=== PATIENT | male | born 1935 | race Caucasian/White ===

== ENCOUNTER 2021-06-24 06:44 | Inpatient (IN) | payer OTHER ==
[2021-06-24] MEDS ORDERED: SODIUM CHLORIDE 0.9% 500 ML INFUS.BAG IV ONE ×2 (07:47→08:00)
[2021-06-24 08:31] LABS: INR 1.44 (0.83-1.09); PROTHROMBIN TIME (PATIENT) 16.2 SEC (9.7-13.0)
[2021-06-24 08:34] LABS: ACTIVATED PTT 25.6 SECONDS (25.2-36.5)
[2021-06-24 08:41] LABS: CHLORIDE 98 mmol/L (98-107); SODIUM 134 mmol/L (136-145)
[2021-06-24 08:43] LABS: CALCIUM 8.8 mg/dL (8.5-10.1); GLUCOSE,RANDOM 362 mg/dL (74-106)
[2021-06-24 08:44] LABS: ALBUMIN 2.4 g/dl (3.4-5.0); ANION GAP 9 MMOL/L (8-16); BLOOD UREA NITROGEN 20.4 mg/dL (7-18); CO2 27 mmol/L (21-32)
[2021-06-24 08:47] LABS: CREATININE 1.2 mg/dL (0.55-1.3); SGOT/AST 13 U/L (15-37); SGPT/ALT 17 U/L (13-61)
[2021-06-24 08:48] LABS: BILIRUBIN,TOTAL 0.5 mg/dL (0.2-1); TOT PROT 5.5 g/dl (6.4-8.2)
[2021-06-24 08:49] LABS: ALK PHOS 112 U/L (45-117)
[2021-06-24 09:15] LABS: HEMATOCRIT 28.6 % (35.4-49); HEMOGLOBIN 8.3 GM/dL (11.7-16.9); MCH 28.6 pg (25.7-33.7); MCHC 29.1 g/dl (32.0-35.9); MEAN CELL VOLUME 98.5 fl (80-96); MEAN PLT VOLUME 8.5 fl (7.5-11.1); PLATELET COUNT 139 10^3/uL (134-434); RDW 22.2 % (11.9-15.9)
[2021-06-24 09:16] LABS: WHITE BLOOD COUNT 406.2 K/mm3 (4.0-10.0)
[2021-06-24] MEDS ORDERED: DEXAMETHASONE SOD PHOSPHATE 10 MG/1 ML VIAL IVPUSH ONE (09:35)
[2021-06-24] MEDS ORDERED: DEXAMETHASONE SOD PHOSPHATE 10 MG/1 ML VIAL ONE (09:41)
[2021-06-24 09:43] LABS: ANISOCYTOSIS 0; MACROCYTOSIS 0; PLATELET ESTIMATE DECREASED
[2021-06-24 09:50] LABS: VENOUS BASE EXCESS -0.9 mmol/L (-2-2); VENOUS PCO2 43.9 mmHg (38-52); VENOUS PH 7.365 (7.310-7.410)
[2021-06-24] MEDS ORDERED: INSULIN (NOVOLOG) ASPART 100 UNITS/ML 10ML VIAL SQ ONE (09:54)
[2021-06-24 10:51] LABS: LACTIC ACID 2.3 mmol/L (0.4-2.0)
[2021-06-24] MEDS ORDERED: PIPERACILLIN/TAZOB 3.375 GM 3.375 GM in DEXTROSE 5%-WATER - 50 ML IVPB ONE (11:51)
[2021-06-24] MEDS ORDERED: VANCOMYCIN 1 GM in D5W (PRE-DOCKED) 1,000 MG/250 ML IVPB ONE (11:51)
[2021-06-24] MEDS ORDERED: VANCOMYCIN 1 GRAM (PRE-DOCKED) 1,000 MG/250 ML BAG IVPB ONE (11:57)
[2021-06-24] MEDS ORDERED: PIPERACILLIN/TAZOB 3.375 GM 3.375 GM/50 ML BAG IVPB ONE (11:58)
[2021-06-24] MEDS ORDERED: ACETAMINOPHEN 325 MG TABLET (FP) PO PRN (12:22)
[2021-06-24] MEDS ORDERED: INSULIN (LEVEMIR) 100 UNITS/ML UNITS SQ ONE (12:45)
[2021-06-24] MEDS ORDERED: FAMOTIDINE 20 MG TABLET ONE (12:47)
[2021-06-24] MEDS: FAMOTIDINE 20 MG TABLET PO SCH (12:55)
[2021-06-24] MEDS: INSULIN SLIDING SCALE (NOVOLOG) 1 VIAL SQ SCH ×2 (16:50→22:06)
[2021-06-24] MEDS ORDERED: DOXYCYCLINE HYCLATE 100 MG CAPSULE PO ONE (16:59)
[2021-06-24] MEDS: DOXYCYCLINE HYCLATE 100 MG CAPSULE PO SCH (17:06)
[2021-06-24] MEDS ORDERED: HEPARIN NA (PORCINE) 5,000 UNITS/ML 1ML VIAL ONE (21:36)
[2021-06-24] MEDS: HEPARIN NA (PORCINE) 5,000 UNITS/ML 1ML VIAL SQ SCH (22:06)
[2021-06-25] MEDS: guaiFENesin/D-METHORPHAN HB 10 ML UNIT-DOSE CUPS PO PRN ×4 (04:55→21:49)
[2021-06-25 05:02] VITALS: BMI 26.2
[2021-06-25] MEDS: INSULIN SLIDING SCALE (NOVOLOG) 1 VIAL SQ SCH ×4 (06:14→21:55)
[2021-06-25 09:01] LABS: HEMATOCRIT 28.5 % (35.4-49); HEMOGLOBIN 7.6 GM/dL (11.7-16.9); MCHC 26.7 g/dl (32.0-35.9); MEAN CELL VOLUME 97.3 fl (80-96); MEAN PLT VOLUME 8.4 fl (7.5-11.1); PLATELET COUNT 151 10^3/uL (134-434); RBC 2.93 M/mm3 (4.00-5.60); RDW 21.5 % (11.9-15.9)
[2021-06-25 09:09] LABS: BLOOD UREA NITROGEN 26.6 mg/dL (7-18)
[2021-06-25 09:10] LABS: ALBUMIN 2.2 g/dl (3.4-5.0); BILIRUBIN,TOTAL 0.7 mg/dL (0.2-1)
[2021-06-25 09:11] LABS: CALCIUM 8.8 mg/dL (8.5-10.1); CREATININE 1.2 mg/dL (0.55-1.3); TOT PROT 5.4 g/dl (6.4-8.2)
[2021-06-25 10:14] LABS: WHITE BLOOD COUNT 465.8 K/mm3 (4.0-10.0)
[2021-06-25] MEDS: DEXAMETHASONE 4 MG TABLET (FP) PO SCH (10:39)
[2021-06-25] MEDS: HEPARIN NA (PORCINE) 5,000 UNITS/ML 1ML VIAL SQ SCH ×2 (10:39→21:49)
[2021-06-25] MEDS: FAMOTIDINE 20 MG TABLET PO SCH (10:40)
[2021-06-25] MEDS: DOXYCYCLINE HYCLATE 100 MG CAPSULE PO SCH ×2 (10:40→17:20)
[2021-06-25] MEDS ORDERED: PIPERACILLIN/TAZOB 3.375 GM 3.375 GM in DEXTROSE 5%-WATER - 50 ML IVPB SCH (12:00)
[2021-06-25 12:01] LABS: ANISOCYTOSIS 1+; MACROCYTOSIS 0; PLATELET ESTIMATE DECREASED
[2021-06-25] MEDS ORDERED: DEXTROSE 5%-WATER - 50 ML IVPB ONE ×2 (13:08→16:57)
[2021-06-25] MEDS ORDERED: PIPERACILLIN/TAZOBACTAM 3.375 GM VIAL IVPB ONE ×2 (13:08→16:57)
[2021-06-25] MEDS: ASPIRIN 81 MG CHEWABLE TABLETS PO SCH (13:56)
[2021-06-25] MEDS ORDERED: PT OWN MED DRAWER 7, Y5N ONE ×2 (15:30→15:38)
[2021-06-25] MEDS: ENALAPRIL MALEATE 5 MG TABLET PO SCH (15:44)
[2021-06-25] MEDS ORDERED: REMDESIVIR 200 MG in SODIUM CHLORIDE 250 ML IVPB ONE (16:00)
[2021-06-25] MEDS: PIPERACILLIN/TAZOB 3.375 GM 3.375 GM in DEXTROSE 5%-WATER - 50 ML IVPB SCH (17:20)
[2021-06-25] MEDS: ATORVASTATIN CA 10 MG TABLET (FP) PO SCH (21:49)
[2021-06-25] MEDS: INSULIN (LEVEMIR) 100 UNITS/ML UNITS SQ SCH (21:50)
[2021-06-25] MEDS ORDERED: INSULIN (LEVEMIR) 100 UNITS/ML UNITS SQ SCH (22:00)
[2021-06-26] MEDS: PIPERACILLIN/TAZOB 3.375 GM 3.375 GM in DEXTROSE 5%-WATER - 50 ML IVPB SCH ×3 (03:00→17:12)
[2021-06-26] MEDS ORDERED: PIPERACILLIN/TAZOBACTAM 3.375 GM VIAL IVPB ONE ×3 (03:09→17:02)
[2021-06-26] MEDS ORDERED: DEXTROSE 5%-WATER - 50 ML IVPB ONE ×3 (03:09→17:02)
[2021-06-26] MEDS ORDERED: SODIUM CHLORIDE 500 ML IV STA (05:39)
[2021-06-26] MEDS: INSULIN SLIDING SCALE (NOVOLOG) 1 VIAL SQ SCH ×4 (06:14→20:59)
[2021-06-26] MEDS ORDERED: PT OWN MED DRAWER 7, Y5N ONE (09:33)
[2021-06-26] MEDS: ASPIRIN 81 MG CHEWABLE TABLETS PO SCH (09:42)
[2021-06-26] MEDS: DEXAMETHASONE 4 MG TABLET (FP) PO SCH (09:42)
[2021-06-26] MEDS: FAMOTIDINE 20 MG TABLET PO SCH (09:43)
[2021-06-26] MEDS: SODIUM CHLORIDE 1,000 ML IV SCH ×2 (09:43→19:28)
[2021-06-26] MEDS: DOXYCYCLINE HYCLATE 100 MG CAPSULE PO SCH ×2 (09:43→17:12)
[2021-06-26] MEDS: HEPARIN NA (PORCINE) 5,000 UNITS/ML 1ML VIAL SQ SCH ×2 (09:43→21:01)
[2021-06-26] MEDS: ENALAPRIL MALEATE 5 MG TABLET PO SCH (09:43)
[2021-06-26 09:51] LABS: MCHC 28.5 g/dl (32.0-35.9); MEAN CELL VOLUME 98.5 fl (80-96); MEAN PLT VOLUME 8.4 fl (7.5-11.1); PLATELET COUNT 177 10^3/uL (134-434); RBC 2.85 M/mm3 (4.00-5.60); RDW 22.1 % (11.9-15.9)
[2021-06-26 09:53] LABS: WHITE BLOOD COUNT 471.4 K/mm3 (4.0-10.0)
[2021-06-26 09:55] LABS: ALBUMIN 1.9 g/dl (3.4-5.0); CALCIUM 8.6 mg/dL (8.5-10.1)
[2021-06-26 09:58] LABS: CREATININE 1.1 mg/dL (0.55-1.3)
[2021-06-26 10:00] LABS: BILIRUBIN,TOTAL 0.6 mg/dL (0.2-1); TOT PROT 5.1 g/dl (6.4-8.2)
[2021-06-26] MEDS ORDERED: REMDESIVIR 100 MG in SODIUM CHLORIDE 250 ML IVPB SCH (10:00)
[2021-06-26 10:48] LABS: ERYTHROCYTE SEDIMENTATION RATE 102 mm/hr (0-20)
[2021-06-26 11:08] LABS: ANISOCYTOSIS 0; MACROCYTOSIS 0; PLATELET ESTIMATE DECREASED
[2021-06-26] MEDS ORDERED: PIPERACILLIN/TAZOB 3.375 GM 3.375 GM in DEXTROSE 5%-WATER - 50 ML IVPB SCH (18:00)
[2021-06-26] MEDS ORDERED: ALBUTEROL SO4 HFA INHALER IH PRN (19:07)
[2021-06-26] MEDS: guaiFENesin/D-METHORPHAN HB 10 ML UNIT-DOSE CUPS PO PRN (20:58)
[2021-06-26] MEDS: ATORVASTATIN CA 10 MG TABLET (FP) PO SCH (20:59)
[2021-06-26] MEDS: BUDESONIDE/FORMETEROL FUMARATE 80/4.5 mcg INHALER IH SCH (21:00)
[2021-06-26] MEDS: INSULIN (LEVEMIR) 100 UNITS/ML UNITS SQ SCH (21:00)
[2021-06-27] MEDS ORDERED: PIPERACILLIN/TAZOBACTAM 3.375 GM VIAL IVPB ONE ×3 (01:16→17:34)
[2021-06-27] MEDS ORDERED: DEXTROSE 5%-WATER - 50 ML IVPB ONE ×3 (01:17→17:34)
[2021-06-27] MEDS: PIPERACILLIN/TAZOB 3.375 GM 3.375 GM in DEXTROSE 5%-WATER - 50 ML IVPB SCH ×3 (01:22→17:37)
[2021-06-27] MEDS: SODIUM CHLORIDE 1,000 ML IV SCH ×2 (04:46→06:03)
[2021-06-27] MEDS: guaiFENesin/D-METHORPHAN HB 10 ML UNIT-DOSE CUPS PO PRN ×3 (04:46→21:20)
[2021-06-27] MEDS: INSULIN SLIDING SCALE (NOVOLOG) 1 VIAL SQ SCH ×4 (06:03→21:22)
[2021-06-27 09:22] LABS: ALBUMIN 1.9 g/dl (3.4-5.0); BLOOD UREA NITROGEN 22.4 mg/dL (7-18); CALCIUM 8.3 mg/dL (8.5-10.1); MAGNESIUM 2.4 mg/dL (1.8-2.4)
[2021-06-27] MEDS: ASPIRIN 81 MG CHEWABLE TABLETS PO SCH (09:22)
[2021-06-27] MEDS: DEXAMETHASONE 4 MG TABLET (FP) PO SCH (09:22)
[2021-06-27] MEDS: HEPARIN NA (PORCINE) 5,000 UNITS/ML 1ML VIAL SQ SCH ×2 (09:22→21:22)
[2021-06-27] MEDS: FAMOTIDINE 20 MG TABLET PO SCH (09:22)
[2021-06-27] MEDS: DOXYCYCLINE HYCLATE 100 MG CAPSULE PO SCH ×2 (09:22→17:37)
[2021-06-27] MEDS: BUDESONIDE/FORMETEROL FUMARATE 80/4.5 mcg INHALER IH SCH ×2 (09:23→21:26)
[2021-06-27 09:27] LABS: BILIRUBIN,TOTAL 0.9 mg/dL (0.2-1); TOT PROT 5.1 g/dl (6.4-8.2)
[2021-06-27] MEDS ORDERED: PT OWN MED DRAWER 7, Y5N ONE (09:29)
[2021-06-27] MEDS: ENALAPRIL MALEATE 5 MG TABLET PO SCH (09:31)
[2021-06-27 10:12] LABS: HEMATOCRIT 29.1 % (35.4-49); MCH 27.9 pg (25.7-33.7); MCHC 27.5 g/dl (32.0-35.9); MEAN CELL VOLUME 101.3 fl (80-96); MEAN PLT VOLUME 8.6 fl (7.5-11.1); PLATELET COUNT 199 10^3/uL (134-434); RBC 2.87 M/mm3 (4.00-5.60); RDW 22.6 % (11.9-15.9)
[2021-06-27 10:15] LABS: WHITE BLOOD COUNT 388.9 K/mm3 (4.0-10.0)
[2021-06-27] MEDS ORDERED: guaiFENesin 200 MG/10 ML 10 ML UNIT-DOSE CUPS PO PRN (10:56)
[2021-06-27] MEDS ORDERED: SODIUM CHLORIDE 1,000 ML IV SCH (11:00)
[2021-06-27 11:32] LABS: URIC ACID 2.8 mg/dL (2.6-7.2)
[2021-06-27] MEDS: ATORVASTATIN CA 10 MG TABLET (FP) PO SCH (21:21)
[2021-06-27] MEDS: INSULIN (LEVEMIR) 100 UNITS/ML UNITS SQ SCH (21:21)
[2021-06-28] MEDS ORDERED: PIPERACILLIN/TAZOBACTAM 3.375 GM VIAL IVPB ONE ×3 (01:19→16:25)
[2021-06-28] MEDS ORDERED: DEXTROSE 5%-WATER - 50 ML IVPB ONE ×3 (01:20→16:25)
[2021-06-28] MEDS: PIPERACILLIN/TAZOB 3.375 GM 3.375 GM in DEXTROSE 5%-WATER - 50 ML IVPB SCH ×3 (01:51→18:04)
[2021-06-28] MEDS: SODIUM CHLORIDE 1,000 ML IV SCH ×2 (01:53→06:13)
[2021-06-28] MEDS: INSULIN SLIDING SCALE (NOVOLOG) 1 VIAL SQ SCH ×4 (06:13→21:55)
[2021-06-28] MEDS ORDERED: PT OWN MED DRAWER 7, Y5N ONE ×2 (09:19→09:50)
[2021-06-28] MEDS: FAMOTIDINE 20 MG TABLET PO SCH (09:42)
[2021-06-28] MEDS: DOXYCYCLINE HYCLATE 100 MG CAPSULE PO SCH ×2 (09:43→18:03)
[2021-06-28] MEDS: ALLOPURINOL 300 MG TABLET (FP) PO SCH (09:43)
[2021-06-28] MEDS: HEPARIN NA (PORCINE) 5,000 UNITS/ML 1ML VIAL SQ SCH ×2 (09:44→21:55)
[2021-06-28] MEDS: DEXAMETHASONE 4 MG TABLET (FP) PO SCH (09:44)
[2021-06-28] MEDS: ASPIRIN 81 MG CHEWABLE TABLETS PO SCH (09:44)
[2021-06-28 09:46] LABS: HEMATOCRIT 23.9 % (35.4-49); MCH 25.4 pg (25.7-33.7); MCHC 25.3 g/dl (32.0-35.9); MEAN CELL VOLUME 100.7 fl (80-96); MEAN PLT VOLUME 8.2 fl (7.5-11.1); PLATELET COUNT 176 10^3/uL (134-434); RBC 2.37 M/mm3 (4.00-5.60); RDW 22.2 % (11.9-15.9)
[2021-06-28] MEDS: ENALAPRIL MALEATE 5 MG TABLET PO SCH (09:52)
[2021-06-28] MEDS: guaiFENesin/D-METHORPHAN HB 10 ML UNIT-DOSE CUPS PO PRN (09:52)
[2021-06-28] MEDS ORDERED: ALLOPURINOL 300 MG TABLET (FP) PO SCH (10:00)
[2021-06-28] MEDS: BUDESONIDE/FORMETEROL FUMARATE 80/4.5 mcg INHALER IH SCH ×2 (10:00→21:57)
[2021-06-28 10:12] LABS: CALCIUM 8.1 mg/dL (8.5-10.1)
[2021-06-28 10:13] LABS: ALBUMIN 1.7 g/dl (3.4-5.0); BLOOD UREA NITROGEN 21.1 mg/dL (7-18)
[2021-06-28 10:17] LABS: BILIRUBIN,TOTAL 0.6 mg/dL (0.2-1); TOT PROT 4.8 g/dl (6.4-8.2)
[2021-06-28 11:14] LABS: URIC ACID 2.5 mg/dL (2.6-7.2)
[2021-06-28] MEDS: ATORVASTATIN CA 10 MG TABLET (FP) PO SCH (21:55)
[2021-06-28] MEDS: INSULIN (LEVEMIR) 100 UNITS/ML UNITS SQ SCH (21:56)
[2021-06-28] MEDS ORDERED: SENNOSIDES 8.6MG TABLET (FP) PO PRN (22:49)
[2021-06-28] MEDS ORDERED: DOCUSATE SODIUM 100 MG CAPSULE (FP) PO PRN (22:49)
[2021-06-29 01:34] LABS: HEMOGLOBIN 7.5 GM/dL (11.7-16.9); RBC 2.75 M/mm3 (4.00-5.60)
[2021-06-29 01:35] LABS: HEMATOCRIT 26.9 % (35.4-49); MCH 27.3 pg (25.7-33.7); MCHC 27.9 g/dl (32.0-35.9); MEAN CELL VOLUME 97.7 fl (80-96); MEAN PLT VOLUME 8.2 fl (7.5-11.1); PLATELET COUNT 168 10^3/uL (134-434); RDW 21.2 % (11.9-15.9)
[2021-06-29] MEDS ORDERED: PIPERACILLIN/TAZOBACTAM 3.375 GM VIAL IVPB ONE ×3 (02:32→17:44)
[2021-06-29] MEDS ORDERED: DEXTROSE 5%-WATER - 50 ML IVPB ONE ×3 (02:32→17:44)
[2021-06-29] MEDS: SODIUM CHLORIDE 1,000 ML IV SCH ×2 (02:37→06:10)
[2021-06-29] MEDS: PIPERACILLIN/TAZOB 3.375 GM 3.375 GM in DEXTROSE 5%-WATER - 50 ML IVPB SCH ×3 (02:38→18:06)
[2021-06-29] MEDS: INSULIN SLIDING SCALE (NOVOLOG) 1 VIAL SQ SCH ×4 (06:10→22:10)
[2021-06-29] MEDS ORDERED: FUROSEMIDE 40 MG/4 ML INJECTABLE VIAL IVPUSH ONE (07:06)
[2021-06-29 07:47] LABS: ARTERIAL BLD GAS O2 SATURATION 75.3 % (95-98); ARTERIAL BLOOD GAS BASE EXCESS -1.8 mmol/L (-2-2); ARTERIAL BLOOD GAS PO2 41.5 mmHg (80-100); ARTERIAL BLOOD GAS pH 7.365 (7.350-7.450)
[2021-06-29 07:50] LABS: ALLENS TEST POSITIVE
[2021-06-29 09:20] LABS: HEMATOCRIT 31.1 % (35.4-49); HEMOGLOBIN 8.6 GM/dL (11.7-16.9); MCHC 27.6 g/dl (32.0-35.9); MEAN CELL VOLUME 97.8 fl (80-96); MEAN PLT VOLUME 8.2 fl (7.5-11.1); PLATELET COUNT 218 10^3/uL (134-434); RBC 3.18 M/mm3 (4.00-5.60); RDW 21.2 % (11.9-15.9)
[2021-06-29 09:34] LABS: BLOOD UREA NITROGEN 25.1 mg/dL (7-18); CALCIUM 8.4 mg/dL (8.5-10.1)
[2021-06-29 09:37] LABS: URIC ACID 2.4 mg/dL (2.6-7.2)
[2021-06-29 09:39] LABS: BILIRUBIN,TOTAL 1.3 mg/dL (0.2-1); CREATININE 1.1 mg/dL (0.55-1.3)
[2021-06-29 09:40] LABS: TOT PROT 5.3 g/dl (6.4-8.2); WHITE BLOOD COUNT 417.6 K/mm3 (4.0-10.0)
[2021-06-29 09:43] LABS: N-TERMINAL BNP 1710.8 pg/ml (5-450)
[2021-06-29 10:30] LABS: ERYTHROCYTE SEDIMENTATION RATE 97 mm/hr (0-20)
[2021-06-29] MEDS: DEXAMETHASONE 4 MG TABLET (FP) PO SCH (10:59)
[2021-06-29] MEDS: FAMOTIDINE 20 MG TABLET PO SCH (10:59)
[2021-06-29] MEDS: ASPIRIN 81 MG CHEWABLE TABLETS PO SCH (10:59)
[2021-06-29] MEDS: BUDESONIDE/FORMETEROL FUMARATE 80/4.5 mcg INHALER IH SCH ×2 (11:00→22:05)
[2021-06-29] MEDS: ALLOPURINOL 300 MG TABLET (FP) PO SCH (11:00)
[2021-06-29] MEDS: ENALAPRIL MALEATE 5 MG TABLET PO SCH (11:00)
[2021-06-29] MEDS: DOXYCYCLINE HYCLATE 100 MG CAPSULE PO SCH ×2 (11:00→18:07)
[2021-06-29] MEDS: HEPARIN NA (PORCINE) 5,000 UNITS/ML 1ML VIAL SQ SCH (11:00)
[2021-06-29] MEDS ORDERED: POTASSIUM CHLORIDE TABS 20 MEQ TABLET.ER (FP) PO ONE (11:30)
[2021-06-29] MEDS: ENOXAPARIN NA (PORCINE) 40 MG/0.4 ML DISP.SYRIN SQ SCH (12:00)
[2021-06-29 12:44] LABS: ALBUMIN 2.1 g/dl (3.4-5.0)
[2021-06-29] MEDS: ATORVASTATIN CA 10 MG TABLET (FP) PO SCH (22:04)
[2021-06-29] MEDS: INSULIN (LEVEMIR) 100 UNITS/ML UNITS SQ SCH (22:04)
[2021-06-30] MEDS ORDERED: PIPERACILLIN/TAZOBACTAM 3.375 GM VIAL IVPB ONE ×3 (01:05→17:39)
[2021-06-30] MEDS ORDERED: DEXTROSE 5%-WATER - 50 ML IVPB ONE ×3 (01:06→17:39)
[2021-06-30] MEDS: PIPERACILLIN/TAZOB 3.375 GM 3.375 GM in DEXTROSE 5%-WATER - 50 ML IVPB SCH ×3 (01:33→17:40)
[2021-06-30] MEDS: INSULIN SLIDING SCALE (NOVOLOG) 1 VIAL SQ SCH ×4 (06:10→22:07)
[2021-06-30 07:09] LABS: IGA IMMUNOGLOBULIN 29 mg/dL (61-437); IGG QN IMMUNOGLOBULIN 445 mg/dL (603-1613); IGM QN SERUM 25 mg/dL (15-143)
[2021-06-30] MEDS ORDERED: PT OWN MED DRAWER 7, Y5N ONE (09:18)
[2021-06-30 09:56] LABS: BLOOD UREA NITROGEN 26.6 mg/dL (7-18); CALCIUM 8.2 mg/dL (8.5-10.1)
[2021-06-30 09:57] LABS: MAGNESIUM 2.2 mg/dL (1.8-2.4)
[2021-06-30 09:59] LABS: CREATININE 1.1 mg/dL (0.55-1.3)
[2021-06-30 10:00] LABS: TOT PROT 4.8 g/dl (6.4-8.2)
[2021-06-30 10:28] LABS: HEMOGLOBIN 8.3 GM/dL (11.7-16.9); MCHC 27.6 g/dl (32.0-35.9); MEAN CELL VOLUME 97.8 fl (80-96); MEAN PLT VOLUME 8.6 fl (7.5-11.1); PLATELET COUNT 201 10^3/uL (134-434); RBC 3.07 M/mm3 (4.00-5.60); RDW 21.5 % (11.9-15.9)
[2021-06-30 10:34] LABS: WHITE BLOOD COUNT 482.4 K/mm3 (4.0-10.0)
[2021-06-30 10:35] LABS: ERYTHROCYTE SEDIMENTATION RATE 106 mm/hr (0-20)
[2021-06-30] MEDS: ENOXAPARIN NA (PORCINE) 40 MG/0.4 ML DISP.SYRIN SQ SCH (10:48)
[2021-06-30] MEDS: DEXAMETHASONE 4 MG TABLET (FP) PO SCH (10:48)
[2021-06-30] MEDS: DOXYCYCLINE HYCLATE 100 MG CAPSULE PO SCH ×2 (10:49→17:40)
[2021-06-30] MEDS: ALLOPURINOL 300 MG TABLET (FP) PO SCH (10:49)
[2021-06-30] MEDS: ASPIRIN 81 MG CHEWABLE TABLETS PO SCH (10:49)
[2021-06-30] MEDS: ENALAPRIL MALEATE 5 MG TABLET PO SCH (10:49)
[2021-06-30] MEDS: BUDESONIDE/FORMETEROL FUMARATE 80/4.5 mcg INHALER IH SCH ×2 (10:49→22:07)
[2021-06-30] MEDS: FAMOTIDINE 20 MG TABLET PO SCH (10:49)
[2021-06-30 11:40] LABS: URIC ACID 2.3 mg/dL (2.6-7.2)
[2021-06-30 12:03] LABS: ALBUMIN 1.6 g/dl (3.4-5.0)
[2021-06-30] MEDS ORDERED: POTASSIUM CHLORIDE TABS 20 MEQ TABLET.ER (FP) PO ONE (14:00)
[2021-06-30] MEDS: INSULIN (LEVEMIR) 100 UNITS/ML UNITS SQ SCH (22:07)
[2021-06-30] MEDS: ATORVASTATIN CA 10 MG TABLET (FP) PO SCH (22:08)
[2021-07-01] MEDS ORDERED: ALBUTEROL SO4 HFA INHALER IH PRN (00:06)
[2021-07-01] MEDS ORDERED: guaiFENesin/D-METHORPHAN HB 10 ML UNIT-DOSE CUPS PO PRN (00:06)
[2021-07-01] MEDS ORDERED: PIPERACILLIN/TAZOBACTAM 3.375 GM VIAL IVPB ONE ×3 (00:16→16:41)
[2021-07-01] MEDS ORDERED: DEXTROSE 5%-WATER - 50 ML IVPB ONE ×3 (00:17→16:41)
[2021-07-01] MEDS: PIPERACILLIN/TAZOB 3.375 GM 3.375 GM in DEXTROSE 5%-WATER - 50 ML IVPB SCH ×3 (01:24→17:02)
[2021-07-01] MEDS: INSULIN SLIDING SCALE (NOVOLOG) 1 VIAL SQ SCH ×4 (06:52→22:15)
[2021-07-01 08:03] LABS: HEMATOCRIT 26.6 % (35.4-49); HEMOGLOBIN 7.3 GM/dL (11.7-16.9); MCH 26.8 pg (25.7-33.7); MCHC 27.3 g/dl (32.0-35.9); MEAN PLT VOLUME 8.8 fl (7.5-11.1); PLATELET COUNT 157 10^3/uL (134-434); RBC 2.71 M/mm3 (4.00-5.60); RDW 21.1 % (11.9-15.9)
[2021-07-01 08:27] LABS: ALBUMIN 1.4 g/dl (3.4-5.0); BLOOD UREA NITROGEN 25.2 mg/dL (7-18); CALCIUM 8.1 mg/dL (8.5-10.1)
[2021-07-01 08:31] LABS: BILIRUBIN,TOTAL 0.9 mg/dL (0.2-1)
[2021-07-01 08:32] LABS: TOT PROT 4.4 g/dl (6.4-8.2)
[2021-07-01 09:00] LABS: WHITE BLOOD COUNT 490.6 K/mm3 (4.0-10.0)
[2021-07-01] MEDS ORDERED: PT OWN MED DRAWER 7, Y5N ONE (09:19)
[2021-07-01] MEDS: ALLOPURINOL 300 MG TABLET (FP) PO SCH (09:30)
[2021-07-01] MEDS: ENALAPRIL MALEATE 5 MG TABLET PO SCH (09:30)
[2021-07-01] MEDS: FAMOTIDINE 20 MG TABLET PO SCH (09:30)
[2021-07-01] MEDS: BUDESONIDE/FORMETEROL FUMARATE 80/4.5 mcg INHALER IH SCH ×2 (09:30→22:06)
[2021-07-01] MEDS: ENOXAPARIN NA (PORCINE) 40 MG/0.4 ML DISP.SYRIN SQ SCH (09:30)
[2021-07-01] MEDS: DOXYCYCLINE HYCLATE 100 MG CAPSULE PO SCH ×2 (09:30→17:02)
[2021-07-01] MEDS: DEXAMETHASONE 4 MG TABLET (FP) PO SCH (09:30)
[2021-07-01] MEDS: ASPIRIN 81 MG CHEWABLE TABLETS PO SCH (09:30)
[2021-07-01 09:47] LABS: ERYTHROCYTE SEDIMENTATION RATE 104 mm/hr (0-20)
[2021-07-01] MEDS: ATORVASTATIN CA 10 MG TABLET (FP) PO SCH (22:04)
[2021-07-01] MEDS: SENNOSIDES 8.6MG TABLET (FP) PO PRN (22:04)
[2021-07-01] MEDS: MELATONIN 5 MG TABLETS PO PRN (22:05)
[2021-07-01] MEDS: DOCUSATE SODIUM 100 MG CAPSULE (FP) PO PRN (22:05)
[2021-07-01] MEDS: INSULIN (LEVEMIR) 100 UNITS/ML UNITS SQ SCH (22:18)
[2021-07-02] MEDS ORDERED: PIPERACILLIN/TAZOBACTAM 3.375 GM VIAL IVPB ONE ×3 (01:28→16:46)
[2021-07-02] MEDS ORDERED: DEXTROSE 5%-WATER - 50 ML IVPB ONE ×3 (01:29→16:46)
[2021-07-02] MEDS: PIPERACILLIN/TAZOB 3.375 GM 3.375 GM in DEXTROSE 5%-WATER - 50 ML IVPB SCH ×3 (02:44→17:11)
[2021-07-02] MEDS: INSULIN SLIDING SCALE (NOVOLOG) 1 VIAL SQ SCH ×4 (06:45→21:24)
[2021-07-02] MEDS ORDERED: PT OWN MED DRAWER 7, Y5N ONE (08:59)
[2021-07-02] MEDS: DOXYCYCLINE HYCLATE 100 MG CAPSULE PO SCH ×2 (10:26→17:12)
[2021-07-02] MEDS: ASPIRIN 81 MG CHEWABLE TABLETS PO SCH (10:26)
[2021-07-02] MEDS: ENOXAPARIN NA (PORCINE) 40 MG/0.4 ML DISP.SYRIN SQ SCH (10:26)
[2021-07-02] MEDS: ACETAMINOPHEN 325 MG TABLET (FP) PO PRN (10:26)
[2021-07-02] MEDS: ENALAPRIL MALEATE 5 MG TABLET PO SCH (10:26)
[2021-07-02] MEDS: FAMOTIDINE 20 MG TABLET PO SCH (10:26)
[2021-07-02] MEDS: ALLOPURINOL 300 MG TABLET (FP) PO SCH (10:27)
[2021-07-02] MEDS: BUDESONIDE/FORMETEROL FUMARATE 80/4.5 mcg INHALER IH SCH ×2 (10:27→21:24)
[2021-07-02] MEDS ORDERED: LORazepam 0.5 MG TABLET PO ONE (10:30)
[2021-07-02] MEDS: DEXAMETHASONE 4 MG TABLET (FP) PO SCH (10:31)
[2021-07-02] MEDS: INSULIN (LEVEMIR) 100 UNITS/ML UNITS SQ SCH (21:23)
[2021-07-02] MEDS: ATORVASTATIN CA 10 MG TABLET (FP) PO SCH (21:24)
[2021-07-03] MEDS ORDERED: DEXTROSE 5%-WATER - 50 ML IVPB ONE ×3 (01:27→17:09)
[2021-07-03] MEDS ORDERED: PIPERACILLIN/TAZOBACTAM 3.375 GM VIAL IVPB ONE ×3 (01:27→17:09)
[2021-07-03] MEDS: PIPERACILLIN/TAZOB 3.375 GM 3.375 GM in DEXTROSE 5%-WATER - 50 ML IVPB SCH ×3 (02:01→17:25)
[2021-07-03] MEDS: INSULIN SLIDING SCALE (NOVOLOG) 1 VIAL SQ SCH ×4 (06:12→22:01)
[2021-07-03] MEDS ORDERED: PT OWN MED DRAWER 7, Y5N ONE (10:19)
[2021-07-03 11:05] LABS: HEMATOCRIT 31.7 % (35.4-49); HEMOGLOBIN 8.7 GM/dL (11.7-16.9); MCH 27.2 pg (25.7-33.7); MCHC 27.5 g/dl (32.0-35.9); MEAN CELL VOLUME 98.7 fl (80-96); MEAN PLT VOLUME 9.1 fl (7.5-11.1); PLATELET COUNT 176 10^3/uL (134-434); RBC 3.21 M/mm3 (4.00-5.60); RDW 21.3 % (11.9-15.9)
[2021-07-03 11:08] LABS: WHITE BLOOD COUNT 398.2 K/mm3 (4.0-10.0)
[2021-07-03 11:09] LABS: CALCIUM 8.8 mg/dL (8.5-10.1); MAGNESIUM 2.5 mg/dL (1.8-2.4)
[2021-07-03 11:14] LABS: BILIRUBIN,TOTAL 0.9 mg/dL (0.2-1); TOT PROT 5.4 g/dl (6.4-8.2)
[2021-07-03] MEDS: ENALAPRIL MALEATE 5 MG TABLET PO SCH (11:16)
[2021-07-03] MEDS: ENOXAPARIN NA (PORCINE) 40 MG/0.4 ML DISP.SYRIN SQ SCH ×2 (11:16→21:59)
[2021-07-03] MEDS: DOXYCYCLINE HYCLATE 100 MG CAPSULE PO SCH ×2 (11:17→17:26)
[2021-07-03] MEDS: BUDESONIDE/FORMETEROL FUMARATE 80/4.5 mcg INHALER IH SCH ×2 (11:17→22:01)
[2021-07-03] MEDS: ASPIRIN 81 MG CHEWABLE TABLETS PO SCH (11:17)
[2021-07-03] MEDS: FAMOTIDINE 20 MG TABLET PO SCH (11:17)
[2021-07-03] MEDS: DEXAMETHASONE 4 MG TABLET (FP) PO SCH (11:17)
[2021-07-03] MEDS: ALLOPURINOL 300 MG TABLET (FP) PO SCH (11:18)
[2021-07-03 11:37] LABS: ALBUMIN 1.8 g/dl (3.4-5.0)
[2021-07-03] MEDS: ATORVASTATIN CA 10 MG TABLET (FP) PO SCH (22:00)
[2021-07-03] MEDS: INSULIN (LEVEMIR) 100 UNITS/ML UNITS SQ SCH (22:00)
[2021-07-04] MEDS ORDERED: PIPERACILLIN/TAZOBACTAM 3.375 GM VIAL IVPB ONE ×3 (01:20→17:11)
[2021-07-04] MEDS ORDERED: DEXTROSE 5%-WATER - 50 ML IVPB ONE ×3 (01:20→17:11)
[2021-07-04] MEDS: PIPERACILLIN/TAZOB 3.375 GM 3.375 GM in DEXTROSE 5%-WATER - 50 ML IVPB SCH ×3 (02:44→17:30)
[2021-07-04] MEDS: INSULIN SLIDING SCALE (NOVOLOG) 1 VIAL SQ SCH ×4 (06:27→22:37)
[2021-07-04 08:25] LABS: MCH 25.8 pg (25.7-33.7); MCHC 25.6 g/dl (32.0-35.9); MEAN CELL VOLUME 100.4 fl (80-96); MEAN PLT VOLUME 9.2 fl (7.5-11.1); PLATELET COUNT 136 10^3/uL (134-434); RDW 21.4 % (11.9-15.9)
[2021-07-04 08:47] LABS: CALCIUM 8.2 mg/dL (8.5-10.1)
[2021-07-04 08:48] LABS: BLOOD UREA NITROGEN 28.2 mg/dL (7-18)
[2021-07-04 08:50] LABS: URIC ACID 1.6 mg/dL (2.6-7.2); WHITE BLOOD COUNT 426.2 K/mm3 (4.0-10.0)
[2021-07-04 08:51] LABS: HEMATOCRIT 26.1 % (35.4-49); HEMOGLOBIN 6.7 GM/dL (11.7-16.9)
[2021-07-04 08:52] LABS: TOT PROT 4.8 g/dl (6.4-8.2)
[2021-07-04 08:53] LABS: BILIRUBIN,TOTAL 0.7 mg/dL (0.2-1)
[2021-07-04 09:30] LABS: ERYTHROCYTE SEDIMENTATION RATE 119 mm/hr (0-20)
[2021-07-04 09:42] LABS: ALBUMIN 1.6 g/dl (3.4-5.0)
[2021-07-04] MEDS ORDERED: PT OWN MED DRAWER 7, Y5N ONE (10:41)
[2021-07-04] MEDS: ENOXAPARIN NA (PORCINE) 40 MG/0.4 ML DISP.SYRIN SQ SCH (10:53)
[2021-07-04] MEDS: ENALAPRIL MALEATE 5 MG TABLET PO SCH (10:54)
[2021-07-04] MEDS: BUDESONIDE/FORMETEROL FUMARATE 80/4.5 mcg INHALER IH SCH ×2 (10:54→22:37)
[2021-07-04] MEDS: DOXYCYCLINE HYCLATE 100 MG CAPSULE PO SCH ×2 (10:54→17:30)
[2021-07-04] MEDS: FAMOTIDINE 20 MG TABLET PO SCH (10:54)
[2021-07-04] MEDS: DEXAMETHASONE 4 MG TABLET (FP) PO SCH (10:54)
[2021-07-04] MEDS: ASPIRIN 81 MG CHEWABLE TABLETS PO SCH (10:54)
[2021-07-04] MEDS: ALLOPURINOL 300 MG TABLET (FP) PO SCH (10:55)
[2021-07-04] MEDS: ATORVASTATIN CA 10 MG TABLET (FP) PO SCH (22:36)
[2021-07-04] MEDS: MELATONIN 5 MG TABLETS PO PRN (22:36)
[2021-07-04] MEDS: SENNOSIDES 8.6MG TABLET (FP) PO PRN (22:36)
[2021-07-04] MEDS: DOCUSATE SODIUM 100 MG CAPSULE (FP) PO PRN (22:37)
[2021-07-04] MEDS: INSULIN (LEVEMIR) 100 UNITS/ML UNITS SQ SCH (22:37)
[2021-07-05] MEDS ORDERED: PIPERACILLIN/TAZOBACTAM 3.375 GM VIAL IVPB ONE ×3 (01:00→17:54)
[2021-07-05] MEDS ORDERED: DEXTROSE 5%-WATER - 50 ML IVPB ONE ×3 (01:00→17:55)
[2021-07-05] MEDS: PIPERACILLIN/TAZOB 3.375 GM 3.375 GM in DEXTROSE 5%-WATER - 50 ML IVPB SCH ×3 (01:50→18:24)
[2021-07-05] MEDS: INSULIN SLIDING SCALE (NOVOLOG) 1 VIAL SQ SCH ×4 (06:39→21:53)
[2021-07-05 08:48] LABS: HEMATOCRIT 28.3 % (35.4-49); HEMOGLOBIN 7.4 GM/dL (11.7-16.9); MCH 25.4 pg (25.7-33.7); MEAN CELL VOLUME 97.6 fl (80-96); MEAN PLT VOLUME 8.9 fl (7.5-11.1); PLATELET COUNT 121 10^3/uL (134-434); RDW 21.9 % (11.9-15.9)
[2021-07-05 09:15] LABS: BLOOD UREA NITROGEN 30.7 mg/dL (7-18)
[2021-07-05 09:16] LABS: ALBUMIN 1.4 g/dl (3.4-5.0); CALCIUM 8.7 mg/dL (8.5-10.1)
[2021-07-05 09:18] LABS: CREATININE 0.9 mg/dL (0.55-1.3)
[2021-07-05 09:19] LABS: BILIRUBIN,TOTAL 0.9 mg/dL (0.2-1)
[2021-07-05 09:45] LABS: WHITE BLOOD COUNT 456.2 K/mm3 (4.0-10.0)
[2021-07-05 10:00] LABS: ERYTHROCYTE SEDIMENTATION RATE 109 mm/hr (0-20)
[2021-07-05] MEDS: ENOXAPARIN NA (PORCINE) 40 MG/0.4 ML DISP.SYRIN SQ SCH (10:25)
[2021-07-05] MEDS: ASPIRIN 81 MG CHEWABLE TABLETS PO SCH (10:25)
[2021-07-05] MEDS: FAMOTIDINE 20 MG TABLET PO SCH (10:25)
[2021-07-05] MEDS: DEXAMETHASONE 4 MG TABLET (FP) PO SCH (10:25)
[2021-07-05] MEDS: DOXYCYCLINE HYCLATE 100 MG CAPSULE PO SCH ×2 (10:27→18:24)
[2021-07-05] MEDS: ALLOPURINOL 300 MG TABLET (FP) PO SCH (10:28)
[2021-07-05] MEDS: BUDESONIDE/FORMETEROL FUMARATE 80/4.5 mcg INHALER IH SCH ×2 (10:55→22:04)
[2021-07-05] MEDS ORDERED: PT OWN MED DRAWER 7, Y5N ONE ×2 (11:48→17:54)
[2021-07-05] MEDS: ENALAPRIL MALEATE 5 MG TABLET PO SCH (12:21)
[2021-07-05 13:34] LABS: URIC ACID 1.6 mg/dL (2.6-7.2)
[2021-07-05] MEDS: POLYETHYLENE GLYCOL (HEALTHYLAX) 3350 17 GM PACKET PO SCH ×2 (16:48→21:52)
[2021-07-05] MEDS: INSULIN (LEVEMIR) 100 UNITS/ML UNITS SQ SCH (21:52)
[2021-07-05] MEDS: QUEtiapine FUMARATE 25 MG TABLET PO SCH (21:52)
[2021-07-05] MEDS: ATORVASTATIN CA 10 MG TABLET (FP) PO SCH (21:52)
[2021-07-06] MEDS: LORazepam 2 MG/ML SDV VIAL IVPUSH PRN ×2 (01:24→10:27)
[2021-07-06] MEDS ORDERED: DEXTROSE 5%-WATER - 50 ML IVPB ONE ×2 (01:30→09:53)
[2021-07-06] MEDS ORDERED: PIPERACILLIN/TAZOBACTAM 3.375 GM VIAL IVPB ONE ×2 (01:30→09:53)
[2021-07-06] MEDS: PIPERACILLIN/TAZOB 3.375 GM 3.375 GM in DEXTROSE 5%-WATER - 50 ML IVPB SCH ×2 (01:43→10:28)
[2021-07-06] MEDS: ACETAMINOPHEN 325 MG TABLET (FP) PO PRN (05:19)
[2021-07-06] MEDS: INSULIN SLIDING SCALE (NOVOLOG) 1 VIAL SQ SCH ×4 (06:47→22:46)
[2021-07-06 08:53] LABS: HEMATOCRIT 27.5 % (35.4-49); HEMOGLOBIN 7.4 GM/dL (11.7-16.9); MCH 26.4 pg (25.7-33.7); MEAN CELL VOLUME 97.8 fl (80-96); MEAN PLT VOLUME 9.8 fl (7.5-11.1); PLATELET COUNT 110 10^3/uL (134-434); RBC 2.81 M/mm3 (4.00-5.60)
[2021-07-06 09:08] LABS: CALCIUM 8.5 mg/dL (8.5-10.1)
[2021-07-06 09:09] LABS: ALBUMIN 1.6 g/dl (3.4-5.0); BLOOD UREA NITROGEN 28.8 mg/dL (7-18); MAGNESIUM 2.5 mg/dL (1.8-2.4)
[2021-07-06 09:11] LABS: URIC ACID 1.6 mg/dL (2.6-7.2)
[2021-07-06 09:12] LABS: CREATININE 0.9 mg/dL (0.55-1.3)
[2021-07-06 09:13] LABS: BILIRUBIN,TOTAL 0.8 mg/dL (0.2-1)
[2021-07-06 09:51] LABS: WHITE BLOOD COUNT 415.8 K/mm3 (4.0-10.0)
[2021-07-06] MEDS: ENOXAPARIN NA (PORCINE) 40 MG/0.4 ML DISP.SYRIN SQ SCH (10:28)
[2021-07-06] MEDS: POLYETHYLENE GLYCOL (HEALTHYLAX) 3350 17 GM PACKET PO SCH ×2 (10:28→22:55)
[2021-07-06] MEDS: ASPIRIN 81 MG CHEWABLE TABLETS PO SCH (10:29)
[2021-07-06] MEDS: DOXYCYCLINE HYCLATE 100 MG CAPSULE PO SCH ×2 (10:29→17:36)
[2021-07-06] MEDS: DEXAMETHASONE 4 MG TABLET (FP) PO SCH (10:29)
[2021-07-06] MEDS: BUDESONIDE/FORMETEROL FUMARATE 80/4.5 mcg INHALER IH SCH ×2 (10:30→22:54)
[2021-07-06] MEDS: FAMOTIDINE 20 MG TABLET PO SCH (10:32)
[2021-07-06] MEDS: ALLOPURINOL 300 MG TABLET (FP) PO SCH (10:32)
[2021-07-06 10:52] LABS: ERYTHROCYTE SEDIMENTATION RATE 94 mm/hr (0-20)
[2021-07-06] MEDS: ENALAPRIL MALEATE 5 MG TABLET PO SCH (11:28)
[2021-07-06] MEDS ORDERED: LORazepam 2 MG/ML SDV VIAL IVPUSH ONE ×2 (15:30→16:15)
[2021-07-06] MEDS ORDERED: PT OWN MED DRAWER 7, Y5N ONE (16:37)
[2021-07-06] MEDS ORDERED: LORazepam 2 MG/ML SDV VIAL IVPUSH PRN (18:55)
[2021-07-06] MEDS ORDERED: ACETAMINOPHEN 325 MG TABLET (FP) PO PRN (18:55)
[2021-07-06] MEDS: INSULIN (LEVEMIR) 100 UNITS/ML UNITS SQ SCH (22:45)
[2021-07-06] MEDS: ATORVASTATIN CA 10 MG TABLET (FP) PO SCH (22:54)
[2021-07-06] MEDS: QUEtiapine FUMARATE 25 MG TABLET PO SCH (22:54)
[2021-07-07] MEDS: INSULIN SLIDING SCALE (NOVOLOG) 1 VIAL SQ SCH ×4 (06:24→22:46)
[2021-07-07 08:44] LABS: HEMATOCRIT 27.5 % (35.4-49); HEMOGLOBIN 7.4 GM/dL (11.7-16.9); MCH 26.4 pg (25.7-33.7); MCHC 26.7 g/dl (32.0-35.9); MEAN CELL VOLUME 98.5 fl (80-96); MEAN PLT VOLUME 9.5 fl (7.5-11.1); PLATELET COUNT 102 10^3/uL (134-434); RBC 2.79 M/mm3 (4.00-5.60); RDW 21.6 % (11.9-15.9)
[2021-07-07 08:55] LABS: ALBUMIN 1.6 g/dl (3.4-5.0); BLOOD UREA NITROGEN 29.7 mg/dL (7-18); MAGNESIUM 2.4 mg/dL (1.8-2.4)
[2021-07-07 08:57] LABS: CREATININE 0.9 mg/dL (0.55-1.3)
[2021-07-07 08:58] LABS: PHOSPHOROUS 3.2 mg/dL (2.5-4.9)
[2021-07-07 08:59] LABS: BILIRUBIN,TOTAL 0.7 mg/dL (0.2-1); TOT PROT 5.1 g/dl (6.4-8.2)
[2021-07-07] MEDS ORDERED: PT OWN MED DRAWER 7, Y5N ONE (09:21)
[2021-07-07 09:33] LABS: ERYTHROCYTE SEDIMENTATION RATE 111 mm/hr (0-20)
[2021-07-07] MEDS: DEXAMETHASONE 4 MG TABLET (FP) PO SCH (09:37)
[2021-07-07] MEDS: ENOXAPARIN NA (PORCINE) 40 MG/0.4 ML DISP.SYRIN SQ SCH (09:37)
[2021-07-07] MEDS: DOXYCYCLINE HYCLATE 100 MG CAPSULE PO SCH ×2 (09:38→18:08)
[2021-07-07] MEDS: BUDESONIDE/FORMETEROL FUMARATE 80/4.5 mcg INHALER IH SCH ×2 (09:38→22:55)
[2021-07-07] MEDS: ASPIRIN 81 MG CHEWABLE TABLETS PO SCH (09:38)
[2021-07-07] MEDS: POLYETHYLENE GLYCOL (HEALTHYLAX) 3350 17 GM PACKET PO SCH ×2 (09:38→22:55)
[2021-07-07] MEDS: FAMOTIDINE 20 MG TABLET PO SCH (09:38)
[2021-07-07] MEDS: ALLOPURINOL 300 MG TABLET (FP) PO SCH (09:39)
[2021-07-07] MEDS: ENALAPRIL MALEATE 5 MG TABLET PO SCH (09:39)
[2021-07-07 09:57] LABS: WHITE BLOOD COUNT 407.6 K/mm3 (4.0-10.0)
[2021-07-07 12:32] LABS: URIC ACID 1.7 mg/dL (2.6-7.2)
[2021-07-07] MEDS: LORazepam 2 MG/ML SDV VIAL IVPUSH PRN (18:15)
[2021-07-07] MEDS: INSULIN (LEVEMIR) 100 UNITS/ML UNITS SQ SCH (22:48)
[2021-07-07] MEDS: ATORVASTATIN CA 10 MG TABLET (FP) PO SCH (22:55)
[2021-07-07] MEDS: QUEtiapine FUMARATE 25 MG TABLET PO SCH (22:55)
[2021-07-07] MEDS: MELATONIN 5 MG TABLETS PO PRN (22:55)
[2021-07-08] MEDS: LORazepam 2 MG/ML SDV VIAL IVPUSH PRN (02:48)
[2021-07-08] MEDS: INSULIN SLIDING SCALE (NOVOLOG) 1 VIAL SQ SCH ×4 (06:05→22:12)
[2021-07-08 07:58] LABS: BLOOD UREA NITROGEN 30.5 mg/dL (7-18)
[2021-07-08 07:59] LABS: ALBUMIN 1.7 g/dl (3.4-5.0)
[2021-07-08 08:01] LABS: CREATININE 0.8 mg/dL (0.55-1.3)
[2021-07-08 08:03] LABS: BILIRUBIN,TOTAL 0.7 mg/dL (0.2-1); TOT PROT 5.2 g/dl (6.4-8.2)
[2021-07-08 09:37] LABS: HEMATOCRIT 27.1 % (35.4-49); HEMOGLOBIN 7.2 GM/dL (11.7-16.9); MCH 26.3 pg (25.7-33.7); MCHC 26.6 g/dl (32.0-35.9); MEAN CELL VOLUME 98.6 fl (80-96); MEAN PLT VOLUME 9.5 fl (7.5-11.1); PLATELET COUNT 85 10^3/uL (134-434); RBC 2.75 M/mm3 (4.00-5.60); RDW 21.5 % (11.9-15.9)
[2021-07-08] MEDS: DEXAMETHASONE 4 MG TABLET (FP) PO SCH (10:06)
[2021-07-08] MEDS: ENOXAPARIN NA (PORCINE) 40 MG/0.4 ML DISP.SYRIN SQ SCH (10:06)
[2021-07-08] MEDS: FAMOTIDINE 20 MG TABLET PO SCH (10:09)
[2021-07-08] MEDS: ASPIRIN 81 MG CHEWABLE TABLETS PO SCH (10:09)
[2021-07-08] MEDS: POLYETHYLENE GLYCOL (HEALTHYLAX) 3350 17 GM PACKET PO SCH ×2 (10:09→22:11)
[2021-07-08] MEDS: DOXYCYCLINE HYCLATE 100 MG CAPSULE PO SCH ×2 (10:09→18:33)
[2021-07-08] MEDS: ALLOPURINOL 300 MG TABLET (FP) PO SCH (10:10)
[2021-07-08] MEDS: BUDESONIDE/FORMETEROL FUMARATE 80/4.5 mcg INHALER IH SCH ×2 (10:10→22:12)
[2021-07-08] MEDS ORDERED: PT OWN MED DRAWER 7, Y5N ONE (10:45)
[2021-07-08] MEDS: ENALAPRIL MALEATE 5 MG TABLET PO SCH (12:08)
[2021-07-08 13:47] LABS: URIC ACID 2.7 mg/dL (2.6-7.2)
[2021-07-08] MEDS: QUEtiapine FUMARATE 25 MG TABLET PO SCH (22:11)
[2021-07-08] MEDS: ATORVASTATIN CA 10 MG TABLET (FP) PO SCH (22:11)
[2021-07-08] MEDS: INSULIN (LEVEMIR) 100 UNITS/ML UNITS SQ SCH (22:12)
[2021-07-09] MEDS: INSULIN SLIDING SCALE (NOVOLOG) 1 VIAL SQ SCH ×4 (06:19→21:40)
[2021-07-09 09:15] LABS: ALBUMIN 1.8 g/dl (3.4-5.0); BLOOD UREA NITROGEN 29.9 mg/dL (7-18); CALCIUM 9.3 mg/dL (8.5-10.1)
[2021-07-09 09:18] LABS: CREATININE 0.9 mg/dL (0.55-1.3)
[2021-07-09 09:20] LABS: BILIRUBIN,TOTAL 0.9 mg/dL (0.2-1); TOT PROT 5.5 g/dl (6.4-8.2)
[2021-07-09 10:02] LABS: ERYTHROCYTE SEDIMENTATION RATE 114 mm/hr (0-20)
[2021-07-09] MEDS: POLYETHYLENE GLYCOL (HEALTHYLAX) 3350 17 GM PACKET PO SCH ×2 (10:30→21:34)
[2021-07-09] MEDS: DOXYCYCLINE HYCLATE 100 MG CAPSULE PO SCH ×2 (10:30→17:30)
[2021-07-09] MEDS: ENALAPRIL MALEATE 5 MG TABLET PO SCH (10:31)
[2021-07-09] MEDS: ALLOPURINOL 300 MG TABLET (FP) PO SCH (10:31)
[2021-07-09] MEDS: FAMOTIDINE 20 MG TABLET PO SCH (10:31)
[2021-07-09] MEDS: DEXAMETHASONE 4 MG TABLET (FP) PO SCH (10:31)
[2021-07-09] MEDS: ASPIRIN 81 MG CHEWABLE TABLETS PO SCH (10:32)
[2021-07-09] MEDS: ENOXAPARIN NA (PORCINE) 40 MG/0.4 ML DISP.SYRIN SQ SCH (10:33)
[2021-07-09] MEDS: BUDESONIDE/FORMETEROL FUMARATE 80/4.5 mcg INHALER IH SCH ×2 (10:33→21:34)
[2021-07-09 11:53] LABS: HEMATOCRIT 29.5 % (35.4-49); HEMOGLOBIN 8.1 GM/dL (11.7-16.9); MCH 26.4 pg (25.7-33.7); MCHC 27.4 g/dl (32.0-35.9); MEAN CELL VOLUME 96.2 fl (80-96); MEAN PLT VOLUME 9.2 fl (7.5-11.1); PLATELET COUNT 97 10^3/uL (134-434); RBC 3.07 M/mm3 (4.00-5.60); RDW 21.3 % (11.9-15.9)
[2021-07-09 11:55] LABS: WHITE BLOOD COUNT 404.2 K/mm3 (4.0-10.0)
[2021-07-09 11:56] LABS: WHITE BLOOD COUNT 311.2 K/mm3 (4.0-10.0)
[2021-07-09] MEDS: QUEtiapine FUMARATE 25 MG TABLET PO SCH (21:34)
[2021-07-09] MEDS: ATORVASTATIN CA 10 MG TABLET (FP) PO SCH (21:34)
[2021-07-09] MEDS: INSULIN (LEVEMIR) 100 UNITS/ML UNITS SQ SCH (21:40)
[2021-07-10] MEDS: LORazepam 2 MG/ML SDV VIAL IVPUSH PRN (04:57)
[2021-07-10] MEDS: INSULIN SLIDING SCALE (NOVOLOG) 1 VIAL SQ SCH ×4 (06:05→22:08)
[2021-07-10 07:53] LABS: HEMATOCRIT 24.7 % (35.4-49); MCH 25.9 pg (25.7-33.7); MCHC 26.3 g/dl (32.0-35.9); MEAN CELL VOLUME 98.5 fl (80-96); MEAN PLT VOLUME 10.1 fl (7.5-11.1); PLATELET COUNT 77 10^3/uL (134-434); RBC 2.51 M/mm3 (4.00-5.60); RDW 21.5 % (11.9-15.9)
[2021-07-10 08:36] LABS: ALBUMIN 1.6 g/dl (3.4-5.0); BILIRUBIN,TOTAL 0.7 mg/dL (0.2-1); BLOOD UREA NITROGEN 33.2 mg/dL (7-18); CALCIUM 9.1 mg/dL (8.5-10.1); CREATININE 0.9 mg/dL (0.55-1.3); TOT PROT 5.1 g/dl (6.4-8.2)
[2021-07-10 08:53] LABS: HEMOGLOBIN 6.5 GM/dL (11.7-16.9)
[2021-07-10] MEDS ORDERED: PT OWN MED DRAWER 7, Y5N ONE (09:30)
[2021-07-10] MEDS: POLYETHYLENE GLYCOL (HEALTHYLAX) 3350 17 GM PACKET PO SCH ×2 (10:07→22:09)
[2021-07-10] MEDS: ALLOPURINOL 300 MG TABLET (FP) PO SCH (10:08)
[2021-07-10] MEDS: ASPIRIN 81 MG CHEWABLE TABLETS PO SCH (10:08)
[2021-07-10] MEDS: FAMOTIDINE 20 MG TABLET PO SCH (10:09)
[2021-07-10] MEDS: DOXYCYCLINE HYCLATE 100 MG CAPSULE PO SCH ×2 (10:09→17:14)
[2021-07-10] MEDS: DEXAMETHASONE 4 MG TABLET (FP) PO SCH (10:09)
[2021-07-10] MEDS: ENALAPRIL MALEATE 5 MG TABLET PO SCH (10:10)
[2021-07-10] MEDS: BUDESONIDE/FORMETEROL FUMARATE 80/4.5 mcg INHALER IH SCH ×2 (10:10→22:09)
[2021-07-10 10:18] LABS: ERYTHROCYTE SEDIMENTATION RATE 83 mm/hr (0-20)
[2021-07-10 15:16] LABS: URIC ACID 2.7 mg/dL (2.6-7.2)
[2021-07-10] MEDS: QUEtiapine FUMARATE 25 MG TABLET PO SCH (22:08)
[2021-07-10] MEDS: ATORVASTATIN CA 10 MG TABLET (FP) PO SCH (22:08)
[2021-07-10] MEDS: INSULIN (LEVEMIR) 100 UNITS/ML UNITS SQ SCH (22:09)
[2021-07-11] MEDS: INSULIN SLIDING SCALE (NOVOLOG) 1 VIAL SQ SCH ×4 (06:34→21:41)
[2021-07-11 09:48] LABS: ALBUMIN 1.8 g/dl (3.4-5.0); BLOOD UREA NITROGEN 31.2 mg/dL (7-18); TOT PROT 5.4 g/dl (6.4-8.2)
[2021-07-11 09:49] LABS: CALCIUM 9.5 mg/dL (8.5-10.1); CREATININE 0.9 mg/dL (0.55-1.3)
[2021-07-11 09:50] LABS: URIC ACID 2.5 mg/dL (2.6-7.2)
[2021-07-11 10:05] LABS: HEMATOCRIT 29.8 % (35.4-49); HEMOGLOBIN 8.6 GM/dL (11.7-16.9); RBC 3.19 M/mm3 (4.00-5.60)
[2021-07-11 10:06] LABS: MCH 26.8 pg (25.7-33.7); MCHC 28.7 g/dl (32.0-35.9); MEAN CELL VOLUME 93.4 fl (80-96); PLATELET COUNT 72 10^3/uL (134-434); RDW 19.6 % (11.9-15.9)
[2021-07-11 10:07] LABS: MEAN PLT VOLUME 9.2 fl (7.5-11.1)
[2021-07-11 10:13] LABS: WHITE BLOOD COUNT 474.8 K/mm3 (4.0-10.0)
[2021-07-11] MEDS: ASPIRIN 81 MG CHEWABLE TABLETS PO SCH (10:18)
[2021-07-11] MEDS: FAMOTIDINE 20 MG TABLET PO SCH (10:18)
[2021-07-11] MEDS: ENALAPRIL MALEATE 5 MG TABLET PO SCH (10:18)
[2021-07-11] MEDS: POLYETHYLENE GLYCOL (HEALTHYLAX) 3350 17 GM PACKET PO SCH ×2 (10:18→21:29)
[2021-07-11] MEDS: DEXAMETHASONE 4 MG TABLET (FP) PO SCH (10:18)
[2021-07-11] MEDS: ALLOPURINOL 300 MG TABLET (FP) PO SCH (10:18)
[2021-07-11] MEDS: BUDESONIDE/FORMETEROL FUMARATE 80/4.5 mcg INHALER IH SCH ×2 (10:18→21:29)
[2021-07-11] MEDS: DOXYCYCLINE HYCLATE 100 MG CAPSULE PO SCH ×2 (10:18→17:16)
[2021-07-11] MEDS: LORazepam 2 MG/ML SDV VIAL IVPUSH PRN (12:41)
[2021-07-11] MEDS: QUEtiapine FUMARATE 25 MG TABLET PO SCH (21:29)
[2021-07-11] MEDS: MELATONIN 5 MG TABLETS PO PRN (21:31)
[2021-07-11] MEDS: INSULIN (LEVEMIR) 100 UNITS/ML UNITS SQ SCH (21:42)
[2021-07-11] MEDS: ATORVASTATIN CA 10 MG TABLET (FP) PO SCH (23:17)
[2021-07-11] MEDS: SENNOSIDES 8.6MG TABLET (FP) PO PRN (23:17)
[2021-07-11] MEDS: DOCUSATE SODIUM 100 MG CAPSULE (FP) PO PRN (23:17)
[2021-07-12] MEDS: INSULIN SLIDING SCALE (NOVOLOG) 1 VIAL SQ SCH ×4 (06:03→22:02)
[2021-07-12 08:11] LABS: HEMATOCRIT 31.6 % (35.4-49); HEMOGLOBIN 8.6 GM/dL (11.7-16.9); MCH 26.1 pg (25.7-33.7); MCHC 27.1 g/dl (32.0-35.9); MEAN CELL VOLUME 96.4 fl (80-96); MEAN PLT VOLUME 9.8 fl (7.5-11.1); PLATELET COUNT 77 10^3/uL (134-434); RBC 3.27 M/mm3 (4.00-5.60); RDW 20.3 % (11.9-15.9)
[2021-07-12 08:39] LABS: ALBUMIN 1.8 g/dl (3.4-5.0); BLOOD UREA NITROGEN 33.2 mg/dL (7-18); CALCIUM 9.6 mg/dL (8.5-10.1)
[2021-07-12 08:42] LABS: CREATININE 0.9 mg/dL (0.55-1.3); URIC ACID 2.4 mg/dL (2.6-7.2)
[2021-07-12 08:44] LABS: BILIRUBIN,TOTAL 1.1 mg/dL (0.2-1)
[2021-07-12 08:45] LABS: TOT PROT 5.6 g/dl (6.4-8.2)
[2021-07-12 09:35] LABS: ERYTHROCYTE SEDIMENTATION RATE 90 mm/hr (0-20)
[2021-07-12 10:01] LABS: WHITE BLOOD COUNT 496.2 K/mm3 (4.0-10.0)
[2021-07-12] MEDS: POLYETHYLENE GLYCOL (HEALTHYLAX) 3350 17 GM PACKET PO SCH (10:46)
[2021-07-12] MEDS: DEXAMETHASONE 4 MG TABLET (FP) PO SCH (10:46)
[2021-07-12] MEDS: DOXYCYCLINE HYCLATE 100 MG CAPSULE PO SCH ×2 (10:46→17:36)
[2021-07-12] MEDS: FAMOTIDINE 20 MG TABLET PO SCH (10:46)
[2021-07-12] MEDS: ASPIRIN 81 MG CHEWABLE TABLETS PO SCH (10:47)
[2021-07-12] MEDS: ENALAPRIL MALEATE 5 MG TABLET PO SCH (10:48)
[2021-07-12] MEDS: ALLOPURINOL 300 MG TABLET (FP) PO SCH (10:48)
[2021-07-12] MEDS: BUDESONIDE/FORMETEROL FUMARATE 80/4.5 mcg INHALER IH SCH ×2 (10:48→22:01)
[2021-07-12] MEDS: METOPROLOL TARTRATE 5 MG/5 ML VIAL IVPUSH PRN ×2 (12:35→17:35)
[2021-07-12] MEDS: LORazepam 2 MG/ML SDV VIAL IVPUSH PRN (13:32)
[2021-07-12] MEDS: ATORVASTATIN CA 10 MG TABLET (FP) PO SCH (22:01)
[2021-07-12] MEDS: QUEtiapine FUMARATE 25 MG TABLET PO SCH (22:01)
[2021-07-12] MEDS: INSULIN (LEVEMIR) 100 UNITS/ML UNITS SQ SCH (22:04)
[2021-07-13] MEDS: ACETAMINOPHEN 1000 MG/100 ML BAG IVPB PRN ×2 (00:05→20:22)
[2021-07-13] MEDS: INSULIN SLIDING SCALE (NOVOLOG) 1 VIAL SQ SCH ×4 (06:35→21:30)
[2021-07-13] MEDS ORDERED: morphine CARPU-JECT 4 MG/1 ML DISP.SYRIN IVPUSH ONE (06:37)
[2021-07-13] MEDS ORDERED: DEXTROSE 50%-WATER - 25 GM/50 ML VIAL IVPUSH ONE (07:01)
[2021-07-13] MEDS ORDERED: DEXTROSE 50%-WATER 25 GM/50 ML DISP.SYRIN ONE (07:17)
[2021-07-13 08:57] LABS: HEMATOCRIT 30.6 % (35.4-49); HEMOGLOBIN 8.4 GM/dL (11.7-16.9); MCH 26.4 pg (25.7-33.7); MCHC 27.4 g/dl (32.0-35.9); MEAN CELL VOLUME 96.3 fl (80-96); MEAN PLT VOLUME 10.1 fl (7.5-11.1); PLATELET COUNT 71 10^3/uL (134-434); RBC 3.18 M/mm3 (4.00-5.60); RDW 19.9 % (11.9-15.9)
[2021-07-13 09:28] LABS: CALCIUM 9.9 mg/dL (8.5-10.1)
[2021-07-13 09:29] LABS: ALBUMIN 1.7 g/dl (3.4-5.0)
[2021-07-13 09:31] LABS: URIC ACID 2.6 mg/dL (2.6-7.2)
[2021-07-13 09:32] LABS: CREATININE 0.9 mg/dL (0.55-1.3)
[2021-07-13 09:33] LABS: BILIRUBIN,TOTAL 1.5 mg/dL (0.2-1)
[2021-07-13 09:34] LABS: TOT PROT 5.3 g/dl (6.4-8.2)
[2021-07-13 10:03] LABS: ERYTHROCYTE SEDIMENTATION RATE 68 mm/hr (0-20)
[2021-07-13] MEDS: DOXYCYCLINE HYCLATE 100 MG CAPSULE PO SCH ×2 (10:53→18:32)
[2021-07-13] MEDS: FAMOTIDINE 20 MG TABLET PO SCH (10:53)
[2021-07-13] MEDS: DEXAMETHASONE 4 MG TABLET (FP) PO SCH (10:53)
[2021-07-13] MEDS: ASPIRIN 81 MG CHEWABLE TABLETS PO SCH (10:53)
[2021-07-13] MEDS: ENALAPRIL MALEATE 5 MG TABLET PO SCH (10:53)
[2021-07-13] MEDS: POLYETHYLENE GLYCOL (HEALTHYLAX) 3350 17 GM PACKET PO SCH (10:53)
[2021-07-13] MEDS: BUDESONIDE/FORMETEROL FUMARATE 80/4.5 mcg INHALER IH SCH ×2 (10:54→21:30)
[2021-07-13] MEDS: ALLOPURINOL 300 MG TABLET (FP) PO SCH (10:54)
[2021-07-13] MEDS ORDERED: FAMOTIDINE 20 MG/50 ML IVPB 20 MG/50 ML MG IVPB ONE (11:36)
[2021-07-13] MEDS ORDERED: DOXYCYCLINE INJECTION 100 MG in DEXTROSE 5%-WATER 100 ML IVPB SCH (11:37)
[2021-07-13] MEDS ORDERED: AMINO ACIDS 4.25%/D5W 1,000 ML IV SCH (11:45)
[2021-07-13] MEDS ORDERED: DEXAMETHASONE SOD PHOSPHATE 10 MG/1 ML VIAL IVPUSH SCH (11:45)
[2021-07-13] MEDS: LORazepam 2 MG/ML SDV VIAL IVPUSH PRN ×2 (12:46→20:21)
[2021-07-13] MEDS: QUEtiapine FUMARATE 25 MG TABLET PO SCH (21:30)
[2021-07-13] MEDS: ATORVASTATIN CA 10 MG TABLET (FP) PO SCH (21:30)
[2021-07-13] MEDS: INSULIN (LEVEMIR) 100 UNITS/ML UNITS SQ SCH (21:31)
[2021-07-14] MEDS: LORazepam 2 MG/ML SDV VIAL IVPUSH PRN (06:24)
[2021-07-14] MEDS: INSULIN SLIDING SCALE (NOVOLOG) 1 VIAL SQ SCH ×4 (06:24→22:29)
[2021-07-14 08:08] LABS: HEMATOCRIT 31.6 % (35.4-49); HEMOGLOBIN 8.6 GM/dL (11.7-16.9); MCH 26.4 pg (25.7-33.7); MCHC 27.1 g/dl (32.0-35.9); MEAN CELL VOLUME 97.4 fl (80-96); MEAN PLT VOLUME 10.5 fl (7.5-11.1); PLATELET COUNT 73 10^3/uL (134-434); RBC 3.25 M/mm3 (4.00-5.60); RDW 20.3 % (11.9-15.9)
[2021-07-14 08:23] LABS: ALBUMIN 1.8 g/dl (3.4-5.0); CALCIUM 10.3 mg/dL (8.5-10.1)
[2021-07-14 08:24] LABS: BLOOD UREA NITROGEN 55.6 mg/dL (7-18)
[2021-07-14 08:26] LABS: URIC ACID 3.5 mg/dL (2.6-7.2)
[2021-07-14 08:27] LABS: CREATININE 1.1 mg/dL (0.55-1.3)
[2021-07-14 08:28] LABS: BILIRUBIN,TOTAL 0.6 mg/dL (0.2-1); TOT PROT 5.6 g/dl (6.4-8.2)
[2021-07-14 09:23] LABS: ERYTHROCYTE SEDIMENTATION RATE 52 mm/hr (0-20)
[2021-07-14] MEDS: FAMOTIDINE 20 MG TABLET PO SCH (13:07)
[2021-07-14] MEDS: POLYETHYLENE GLYCOL (HEALTHYLAX) 3350 17 GM PACKET PO SCH (13:07)
[2021-07-14] MEDS: DEXAMETHASONE 4 MG TABLET (FP) PO SCH (13:07)
[2021-07-14] MEDS: ENALAPRIL MALEATE 5 MG TABLET PO SCH (13:08)
[2021-07-14] MEDS: BUDESONIDE/FORMETEROL FUMARATE 80/4.5 mcg INHALER IH SCH ×2 (13:08→22:29)
[2021-07-14] MEDS: DOXYCYCLINE HYCLATE 100 MG CAPSULE PO SCH ×2 (13:08→18:56)
[2021-07-14] MEDS: ALLOPURINOL 300 MG TABLET (FP) PO SCH (13:09)
[2021-07-14] MEDS: QUEtiapine FUMARATE 25 MG TABLET PO SCH (22:29)
[2021-07-14] MEDS: INSULIN (LEVEMIR) 100 UNITS/ML UNITS SQ SCH (22:29)
[2021-07-14] MEDS: ATORVASTATIN CA 10 MG TABLET (FP) PO SCH (22:29)
[2021-07-15] MEDS: INSULIN SLIDING SCALE (NOVOLOG) 1 VIAL SQ SCH ×4 (06:31→22:00)
[2021-07-15 08:35] LABS: HEMATOCRIT 31.6 % (35.4-49); HEMOGLOBIN 7.8 GM/dL (11.7-16.9); MCH 25.6 pg (25.7-33.7); MCHC 24.7 g/dl (32.0-35.9); MEAN CELL VOLUME 103.6 fl (80-96); MEAN PLT VOLUME 10.5 fl (7.5-11.1); PLATELET COUNT 88 10^3/uL (134-434); RBC 3.05 M/mm3 (4.00-5.60); RDW 20.9 % (11.9-15.9)
[2021-07-15 08:48] LABS: CHLORIDE 113 mmol/L (98-107); SODIUM 152 mmol/L (136-145)
[2021-07-15 08:55] LABS: ALBUMIN 1.8 g/dl (3.4-5.0); CALCIUM 9.7 mg/dL (8.5-10.1); CO2 32 mmol/L (21-32); CREATININE 2.3 mg/dL (0.55-1.3); MAGNESIUM 3.1 mg/dL (1.8-2.4); SGOT/AST 15 U/L (15-37)
[2021-07-15 08:56] LABS: GLUCOSE,RANDOM 254 mg/dL (74-106)
[2021-07-15 08:57] LABS: BILIRUBIN,TOTAL 0.4 mg/dL (0.2-1); TOT PROT 5.5 g/dl (6.4-8.2)
[2021-07-15 08:58] LABS: ALK PHOS 152 U/L (45-117); SGPT/ALT 9 U/L (13-61)
[2021-07-15 09:05] LABS: ANION GAP 7 MMOL/L (8-16); BLOOD UREA NITROGEN 84.1 mg/dL (7-18)
[2021-07-15] MEDS ORDERED: SODIUM POLYSTYRENE SULFONATE 15 GM/60 ML BOTTLE PO ONE (09:35)
[2021-07-15 09:45] LABS: ERYTHROCYTE SEDIMENTATION RATE 44 mm/hr (0-20)
[2021-07-15] MEDS ORDERED: SODIUM POLYSTYRENE SULFONATE 15 GM/60 ML BOTTLE RC ONE (12:06)
[2021-07-15] MEDS ORDERED: SODIUM POLYSTYRENE SULFONATE 15 GM/60 ML BOTTLE ONE (12:18)
[2021-07-15] MEDS: BUDESONIDE/FORMETEROL FUMARATE 80/4.5 mcg INHALER IH SCH ×2 (13:11→22:00)
[2021-07-15] MEDS: ENALAPRIL MALEATE 5 MG TABLET PO SCH (13:11)
[2021-07-15] MEDS: DEXAMETHASONE 4 MG TABLET (FP) PO SCH (13:11)
[2021-07-15] MEDS: POLYETHYLENE GLYCOL (HEALTHYLAX) 3350 17 GM PACKET PO SCH (13:11)
[2021-07-15] MEDS: FAMOTIDINE 20 MG TABLET PO SCH (13:11)
[2021-07-15] MEDS: ALLOPURINOL 300 MG TABLET (FP) PO SCH (13:12)
[2021-07-15] MEDS: DOXYCYCLINE HYCLATE 100 MG CAPSULE PO SCH ×2 (13:12→17:29)
[2021-07-15] MEDS ORDERED: PIPERACILLIN/TAZOB 2.25 GM 2.25 GM in DEXTROSE 5%-WATER - 50 ML IVPB SCH (13:15)
[2021-07-15] MEDS: ACETAMINOPHEN 1000 MG/100 ML BAG IVPB PRN ×2 (13:21→21:21)
[2021-07-15] MEDS ORDERED: VANCOMYCIN 1 GRAM (PRE-DOCKED) 1,000 MG/250 ML BAG IVPB ONE (14:00)
[2021-07-15] MEDS ORDERED: DEXTROSE 5%-WATER - 50 ML IVPB ONE ×2 (14:12→20:25)
[2021-07-15] MEDS ORDERED: PIPERACILLIN/TAZOBACTAM 2.25 GM VIAL IVPB ONE ×2 (14:12→20:25)
[2021-07-15] MEDS: PIPERACILLIN/TAZOB 2.25 GM 2.25 GM in DEXTROSE 5%-WATER - 50 ML IVPB SCH ×2 (14:50→20:55)
[2021-07-15 14:56] LABS: URINE APPEARANCE CLOUDY; URINE BILIRUBIN 1+ (NEGATIVE); URINE COLOR DK YELLOW; URINE GLUCOSE (UA) NEGATIVE (NEGATIVE); URINE KETONE NEGATIVE (NEGATIVE); URINE LEUK ESTERASE NEGATIVE (NEGATIVE); URINE NITRITE NEGATIVE (NEGATIVE); URINE PROTEIN NEGATIVE (NEGATIVE); URINE UROBILINOGEN 0.2 mg/dL (0.2-1.0)
[2021-07-15 20:57] LABS: CHLORIDE 115 mmol/L (98-107); SODIUM 153 mmol/L (136-145)
[2021-07-15 20:58] LABS: BLOOD UREA NITROGEN 103.4 mg/dL (7-18); CALCIUM 9.4 mg/dL (8.5-10.1); CO2 33 mmol/L (21-32)
[2021-07-15 20:59] LABS: GLUCOSE,RANDOM 241 mg/dL (74-106)
[2021-07-15 21:02] LABS: CREATININE 3.5 mg/dL (0.55-1.3)
[2021-07-15 21:12] LABS: ANION GAP 5 MMOL/L (8-16)
[2021-07-15] MEDS: ATORVASTATIN CA 10 MG TABLET (FP) PO SCH (21:19)
[2021-07-15] MEDS: QUEtiapine FUMARATE 25 MG TABLET PO SCH (21:19)
[2021-07-15] MEDS: INSULIN (LEVEMIR) 100 UNITS/ML UNITS SQ SCH (22:00)
[2021-07-15 23:28] VITALS: BP 62/28; PULSE 91; TEMP 101.1
[2021-07-16] MEDS ORDERED: PIPERACILLIN/TAZOB 2.25 GM 2.25 GM in DEXTROSE 5%-WATER - 50 ML IVPB SCH (18:00)
== END 2021-07-15 22:33 | disposition expired | DRG 177 ==
LOC: JER 06:44 → JERBED 09:35 → J8W 23:29 → J4S 06-29 12:43
PROVIDERS: ADMIT Internal Medicine; ATTEND Internal Medicine
PROC: XW033E5 Introduction of Remdesivir Anti-infective into Peripheral Vein, Percutaneous Approach, New Technology Group 5 (ICD-10-PCS; principal; 2021-06-25)
PROC: 3E0333Z Introduction of Anti-inflammatory into Peripheral Vein, Percutaneous Approach (ICD-10-PCS; 2021-06-25)
DX: U07.1 COVID-19 (principal); J12.82 Pneumonia due to coronavirus disease 2019; J96.01 Acute respiratory failure with hypoxia; J18.9 Pneumonia, unspecified organism; C91.10 Chronic lymphocytic leukemia of B-cell type not having achieved remission; M86.8X7 Other osteomyelitis, ankle and foot; N17.9 Acute kidney failure, unspecified; I10 Essential (primary) hypertension; E78.5 Hyperlipidemia, unspecified; D53.9 Nutritional anemia, unspecified; E87.5 Hyperkalemia; E11.69 Type 2 diabetes mellitus with other specified complication; I46.9 Cardiac arrest, cause unspecified
CPT/HCPCS: 36415; 36430; 36600; 71045-TC-FY; 71250-TC; 80048; 80053; 81003; 82550; 82607; 82728; 82746; 82784; 82803; 82962; 83010; 83036; 83540; 83550; 83605; 83615; 83735; 83880; 84100; 84443; 84484; 84550; 85025; 85027; 85045; 85379; 85610; 85651; 85730; 86140; 86850; 86880; 86900; 86901; 86922; 87040; 87086; 87804; 87807; 87899; 93005; 93010; 97116-GP; 97161-GP; 99285-25; C9803; J0131; J1100; J1644; P9058; U0003; U0005